=== PATIENT | male | born 1960 | race Caucasian/White ===

== ENCOUNTER 2017-08-07 10:16 | Emergency (ER) | payer OTHER ==
[~2017-08-07] VITALS: Ht 177.8 cm; Wt 120.2 kg
[~2017-08-07 10:16] MED LIST: AMARYL2 MG PO; AMBIEN 5 MG TABL5 M1 PO; ASPIR 8181 MG PO; CIPRO500 MG PO; FLONASE 0.05%50 MCG NS; GLUCOPHAGE XR500 MG PO; HYTRIN 5 M5 MG/1 CAP PO; HYTRIN10 MG PO; IBUPROFEN 800800 MG PO; KRILL OIL 3001 EACH PO; LEVAQUIN 500 M500 M2 PO; LEVOTHYROXIN0.025 MG PO; LIPITOR 20 MG T20 M1 PO; LISINOPRIL40 MG PO; METRONIDAZOLE500 M4 PO; NORCO 5-325 TA1 EACH PO; OMEPRAZOLE40 MG PO; PREDNISONE50 MG PO; PROMETHAZINE/C118 ML PO; VENTOLIN HFA 1818 GM INH
[2017-08-07 10:21] VITALS: BP 155/86
[2017-08-07] MEDS ORDERED: ZPAK PO (10:37)
[2017-08-07] MEDS ORDERED: PREDNISONE 20 M20 M1 PO (10:37)
[2017-08-07] MEDS ORDERED: PROAIR HFA8.5 GM INH (10:37)
== END 2017-08-07 10:51 | disposition home or self-care (01) ==
LOC: M.ERS 10:16
DX: I10 Essential (primary) hypertension (principal); J40 Bronchitis, not specified as acute or chronic; E11.9 Type 2 diabetes mellitus without complications; K21.9 Gastro-esophageal reflux disease without esophagitis; E78.5 Hyperlipidemia, unspecified; E03.9 Hypothyroidism, unspecified